=== PATIENT | male | born 1965 | race African-American/Black ===

== ENCOUNTER 2017-04-25 14:34 | Emergency (ER) | payer OTHER ==
[~2017-04-25] VITALS: Ht 188 cm; Wt 125.6 kg
[2017-04-25] MEDS ORDERED: IBUPROFEN 400 MG TAB PO ONE (15:15)
[2017-04-25 17:28] VITALS: BP 140/80
== END 2017-04-25 17:20 | disposition home or self-care (01) ==
LOC: FSED 14:34
DX: M54.2 Cervicalgia (principal); S16.1XXA Strain of muscle, fascia and tendon at neck level, initial encounter; S40.012A Contusion of left shoulder, initial encounter; M54.5 Low back pain; V43.53XA Car driver injured in collision with pick-up truck in traffic accident, initial encounter; Y92.488 Other paved roadways as the place of occurrence of the external cause
CPT/HCPCS: 99283